=== PATIENT | female | born 1995 | race Asian ===

== ENCOUNTER 2017-03-20 09:19 | Emergency (ER) | payer OTHER ==
[2017-03-20] MEDS ORDERED: NS 0.9% 1000 ML* 1,000 ML IV ONE (09:34)
[2017-03-20 09:51] LABS: Hematocrit 39 % (35-47); Hemoglobin 13.4 g/dl (12.0-16.0); Mean Corpuscular HGB Conc 34 g/dl (31-36); Mean Corpuscular Hemoglobin 32 pg (27-31); Mean Corpuscular Volume 94 fL (80-97); Mean Platelet Volume 8 um3 (7.4-10.4); Red Blood Count 4.17 10^6/ul (4.0-5.4); Red Cell Distribution Width 12 % (10.5-15); White Blood Count 5.8 10^3/ul (3.5-10.8)
[2017-03-20 10:17] LABS: ALT 9 U/L (7-52); AST 12 U/L (13-39); Albumin 3.8 g/dL (3.2-5.2); Alkaline Phosphatase 45 U/L (34-104); Anion Gap 6 mmol/L (2-11); BUN/Creatinine Ratio 16.1 (8-20); Blood Urea Nitrogen 9 mg/dL (6-24); C Reactive Protein < 1.00 mg/L (< 5.00); CO2 Carbon Dioxide 26 mmol/L (22-32); Calcium 8.8 mg/dL (8.6-10.3); Chloride 106 mmol/L (101-111); EGFR African American 174.1 (>60); EGFR Non-African American 135.4 (>60); Globulin 2.5 g/dL (2-4); Glucose 88 mg/dL (70-100); Lipase 10 U/L (11.0-82.0); Potassium 3.4 mmol/L (3.5-5.0); Sodium 138 mmol/L (133-145); Total Protein 6.3 g/dL (6.4-8.9)
[2017-03-20] MEDS ORDERED: Potassium Chlor TAB* 20 MEQ TAB.ER PO ONE (11:04)
--- NOTE | 2017-03-20 11:45 | RAD ---
Indication: Pelvic pain. Real-time sonography of the pelvis was performed. The uterus measures 8.0 x 2.9 x 4.5 cm. Endometrial echo measures 8 mm. Right ovary measures 3.6 x 1.4 x 2.3 cm. Left ovary measures 2.8 x 1.6 x 2.3 cm. No adnexal masses are noted. There are septated cysts in the cul-de-sac measuring 2.5 x 1.5 x 2.2 cm. IMPRESSION: No adnexal masses are noted. There may be a septated cyst noted in the cul-de-sac measuring 2.5 x 1.5 x 2.2 cm.
[2017-03-20 12:34] LABS: Urine Bilirubin Negative (Negative); Urine Glucose Negative (Negative); Urine Nitrite Negative (Negative)
[2017-03-20 12:43] VITALS: BP 84/55
[2017-03-20 12:59] LABS: Urine Bacteria 1+ (Absent)
--- NOTE | 2017-03-20 18:32 | ED ---
Ari Ortiz Angela, scribed for Ben Rodriguez MD on 03/20/17 at 0946 . Abdominal Pain/Female - HPI Summary HPI Summary: This pt is a 21 y/o female presenting to [facility] c/o lower abdominal pain x2 days. Pt reports her abdominal pain 2 days ago was in the pelvic area. She states that she went to [facility] yesterday was given a shot and medication for pelvic inflammatory disease (PID). This lower abd pain is rated 5 out of 10 in severity and described as intermittent "poking in the uterus" pain. Today, her pain was much severe rated 9 out of 10 in severity. She notes she had 30 minutes of constant pain, and describes that she couldn't move secondary to pain. She has never had this pain before. She took 2 Advils today with moderate relief, and currently rates her pain 3 out of 10 in severity. Additionally after taking a ginseng supplement, the pt had 6 episodes of emesis and diarrhea. She states she didn't vomit any food, as she had not eaten within the past 12 hours. LNMP: 1 month ago, pt is 3 days late. - History of Current Complaint Chief Complaint: EDAbdPain Stated Complaint: ABD PAIN Time Seen by Provider: 03/20/17 09:34 Hx Obtained From: Patient Onset/Duration: Lasting Days Timing: Days Pain Intensity: 3 Pain Scale Used: 0-10 Numeric Location: Other - pelvic pain Radiates: No Character: Sharp Associated Signs and Symptoms: Positive: Nausea, Vomiting, Diarrhea. Negative: Fever, Chest Pain, Back Pain Allergies/Adverse Reactions: Allergies Allergy/AdvReac Type Severity Reaction Status Date / Time No Known Allergies Allergy Verified 03/20/17 09:29 PMH/Surg Hx/FS Hx/Imm Hx Endocrine/Hematology History: Denies: Hx Diabetes Cardiovascular History: Denies: Hx Hypertension Psychiatric History: Denies: Hx Eating Disorder Infectious Disease History: No Infectious Disease History: Denies: Traveled Outside the [place] in Last 30 Days - Family History Known Family History: Negative: Hypertension, Diabetes - Social History Alcohol Use: None Hx Substance Use: No Substance Use Type: Reports: None Hx Tobacco Use: No Smoking Status (MU): Never Smoked Tobacco Review of Systems Negative: Fever, Chills ENT: Negative Positive: Abdominal Pain, Vomiting, Diarrhea, Nausea Genitourinary: Negative Negative: Headache, Weakness, Paresthesia, Numbness All Other Systems Reviewed And Are Negative: Yes Physical Exam - Summary Physical Exam Summary: VITAL SIGNS: Reviewed. GENERAL: Patient is a well-developed and nourished female who is lying comfortable in the stretcher. Patient is not in any acute respiratory distress. HEAD AND FACE: Normocephalic and atraumatic. EYES: PERRLA, EOMI x 2, No injected conjunctiva. EARS: Hearing grossly intact. Ear canals and tympanic membranes are WNL. MOUTH: Oropharynx within normal limits. NECK: Supple, trachea is midline, no adenopathy, no JVD. CHEST: Symmetric, no tenderness at palpation LUNGS: Clear to auscultation bilaterally. No wheezing or crackles. CVS: RRR, S1 and S2 present, no murmurs or gallops appreciated. ABDOMEN: Soft, non-tender. No signs of distention. Positive bowel sounds. No rebound no guarding, and no masses palpated. No abdominal bruit or pulsations. There is pelvic tenderness to palpation. EXTREMITIES: FROM in all major joints, no edema, no cyanosis or clubbing. NEURO: Alert and oriented x 3. No acute neurological deficits. Speech is normal. SKIN: Dry and warm Triage Information Reviewed: Yes Vital Signs On Initial Exam: Initial Vitals Temp Pulse Resp BP Pulse Ox 97.6 F 66 20 113/62 95 03/20/17 09:27 03/20/17 09:27 03/20/17 09:27 03/20/17 09:27 03/20/17 09:27 Vital Signs Reviewed: Yes Diagnostics - Vital Signs Vital Signs Temp Pulse Resp BP Pulse Ox 03/20/17 09:27 97.6 F 66 20 113/62 95 - Laboratory Lab Results: Lab Results 03/20/17 03/20/17 03/20/17 Range/Units 09:44 09:44 09:44 WBC 5.8 (3.5-10.8) 10^3/ul RBC 4.17 (4.0-5.4) 10^6/ul Hgb 13.4 (12.0-16.0) g/dl Hct 39 (35-47) % MCV 94 (80-97) fL MCH 32 H (27-31) pg MCHC 34 (31-36) g/dl RDW 12 (10.5-15) % Plt Count 193 (150-450) 10^3/ul MPV 8 (7.4-10.4) um3 Neut % (Auto) 73.1 (38-83) % Lymph % (Auto) 17.4 L (25-47) % Lynn % (Auto) 5.7 (1-9) % Eos % (Auto) 2.9 (0-6) % Baso % (Auto) 0.9 (0-2) % Absolute Neuts (auto) 4.2 (1.5-7.7) 10^3/ul Absolute Lymphs (auto) 1.0 (1.0-4.8) 10^3/ul Absolute Monos (auto) 0.3 (0-0.8) 10^3/ul Absolute Eos (auto) 0.2 (0-0.6) 10^3/ul Absolute Basos (auto) 0.1 (0-0.2) 10^3/ul Absolute Nucleated RBC 0 10^3/ul Nucleated RBC % 0.1 Sodium 138 (133-145) mmol/L Potassium 3.4 L (3.5-5.0) mmol/L Chloride 106 (101-111) mmol/L Carbon Dioxide 26 (22-32) mmol/L Anion Gap 6 (2-11) mmol/L BUN 9 (6-24) mg/dL Creatinine 0.56 (0.51-0.95) mg/dL Est GFR ( Amer) 174.1 (>60) Est GFR (Non-Af Amer) 135.4 (>60) BUN/Creatinine Ratio 16.1 (8-20) Glucose 88 (70-100) mg/dL Lactic Acid 1.0 (0.5-2.0) mmol/L Calcium 8.8 (8.6-10.3) mg/dL Total Bilirubin 0.50 (0.2-1.0) mg/dL AST 12 L (13-39) U/L ALT 9 (7-52) U/L Alkaline Phosphatase 45 (34-104) U/L C-Reactive Protein < 1.00 (< 5.00) mg/L Total Protein 6.3 L (6.4-8.9) g/dL Albumin 3.8 (3.2-5.2) g/dL Globulin 2.5 (2-4) g/dL Albumin/Globulin Ratio 1.5 (1-3) Lipase 10 L (11.0-82.0) U/L Beta HCG, Quant < 0.60 mIU/mL Urine Color Urine Appearance Urine pH (5-9) Ur Specific [place] (1.010-1.030) Urine Protein (Negative) Urine Ketones (Negative) Urine Blood (Negative) Urine Nitrate (Negative) Urine Bilirubin (Negative) Urine Urobilinogen (Negative) Ur Leukocyte Esterase (Negative) Urine WBC (Auto) (Absent) Urine RBC (Auto) (Absent) Urine Bacteria (Absent) Urine Glucose (Negative) Urine Ascorbic Acid 03/20/17 Range/Units 11:30 WBC (3.5-10.8) 10^3/ul RBC (4.0-5.4) 10^6/ul Hgb (12.0-16.0) g/dl Hct (35-47) % MCV (80-97) fL MCH (27-31) pg MCHC (31-36) g/dl RDW (10.5-15) % Plt Count (150-450) 10^3/ul MPV (7.4-10.4) um3 Neut % (Auto) (38-83) % Lymph % (Auto) (25-47) % Lynn % (Auto) (1-9) % Eos % (Auto) (0-6) % Baso % (Auto) (0-2) % Absolute Neuts (auto) (1.5-7.7) 10^3/ul Absolute Lymphs (auto) (1.0-4.8) 10^3/ul Absolute Monos (auto) (0-0.8) 10^3/ul Absolute Eos (auto) (0-0.6) 10^3/ul Absolute Basos (auto) (0-0.2) 10^3/ul Absolute Nucleated RBC 10^3/ul Nucleated RBC % Sodium (133-145) mmol/L Potassium (3.5-5.0) mmol/L Chloride (101-111) mmol/L Carbon Dioxide (22-32) mmol/L Anion Gap (2-11) mmol/L BUN (6-24) mg/dL Creatinine (0.51-0.95) mg/dL Est GFR ( Amer) (>60) Est GFR (Non-Af Amer) (>60) BUN/Creatinine Ratio (8-20) Glucose (70-100) mg/dL Lactic Acid (0.5-2.0) mmol/L Calcium (8.6-10.3) mg/dL Total Bilirubin (0.2-1.0) mg/dL AST (13-39) U/L ALT (7-52) U/L Alkaline Phosphatase (34-104) U/L C-Reactive Protein (< 5.00) mg/L Total Protein (6.4-8.9) g/dL Albumin (3.2-5.2) g/dL Globulin (2-4) g/dL Albumin/Globulin Ratio (1-3) Lipase (11.0-82.0) U/L Beta HCG, Quant mIU/mL Urine Color Yellow Urine Appearance Clear Urine pH 6.0 (5-9) Ur Specific [place] 1.005 L (1.010-1.030) Urine Protein Negative (Negative) Urine Ketones Negative (Negative) Urine Blood Negative (Negative) Urine Nitrate Negative (Negative) Urine Bilirubin Negative (Negative) Urine Urobilinogen Negative (Negative) Ur Leukocyte Esterase Negative (Negative) Urine WBC (Auto) (Absent) Urine RBC (Auto) Trace(0-2/hpf) (Absent) Urine Bacteria 1+ H (Absent) Urine Glucose Negative (Negative) Urine Ascorbic Acid Not Reportable Result Diagrams: 03/20/17 09:44 03/20/17 09:44 Lab Statement: Any lab studies that have been ordered have been reviewed, and results considered in the medical decision making process. - Ultrasound No standard instances Ultrasound Interpretation: Positive (See Comments) - Pelvic US IMPRESSION: No adnexal masses are noted. There may be septated cyst noted in the cul-de-sac measuring 2.5 x 1.5 x 2.2 cm. ED physician has reviewed this radiology report and agrees. Ultrasound Interpretation Completed By: Radiologist Abdominal Pain Fem Course/Dx - Course Course Of Treatment: This pt is a 21 y/o female presenting to [facility] c/o lower abdominal pain x2 days. Pt reports her abdominal pain 2 days ago was in the pelvic area. She states that she went to [facility] yesterday was given a shot and medication for pelvic inflammatory disease (PID). This lower abd pain is rated 5 out of 10 in severity and described as intermittent "poking in the uterus" pain. Today, her pain was much severe rated 9 out of 10 in severity. She notes she had 30 minutes of constant pain, and describes that she couldn't move secondary to pain. She has never had this pain before. She took 2 Advils today with moderate relief, and currently rates her pain 3 out of 10 in severity. Additionally after taking a ginseng supplement, the pt had 6 episodes of emesis and diarrhea. She states she didn't vomit any food, as she had not eaten within the past 12 hours. LNMP: 1 month ago, pt is 3 days late. Test results are without any significant abnormalities except for potassium of 3.4 for which the pt was given potassium chloride. Urinalysis is negative for UTI. Pelvic US shows no adnexal masses and a septated cyst noted in the cul-de-sac. I offered the pt a pelvic exam, but the pt declines since she had one done yesterday at [facility]. She was diagnosed with PID, even though she is not sexually active. Pt was taking rocephin and azithromycin, and now she is taking doxycycline. At this time the pt is completely asymptomatic and all her symptoms resolved, only lasting for a few minutes. Since the pts blood test and US are negative and the pt is asymptomatic, I will discharge the pt and is advised to follow up with OBGYN. Pt understands and agrees. Pt is hemodynamically stable, alert and oriented x3. - Diagnoses Differential Diagnosis: Positive: Ectopic , Ovarian Cyst, , Urinary Tract Infection Provider Diagnoses: Pelvic cyst, Pelvic pain Discharge - Discharge Plan Condition: Stable Disposition: HOME Patient Education Materials: Pelvic Pain in Women (ED) Referrals: [facility] [Outside] Additional Instructions: Please follow up with your primary care provider in [place]. The documentation as recorded by the Ari reid Angela accurately reflects the service I personally performed and the decisions made by me, Ben Rodriguez MD.
== END 2017-03-20 13:04 | disposition home or self-care (01) ==
LOC: ED 09:19
DX: R10.30 Lower abdominal pain, unspecified (principal); N94.89 Other specified conditions associated with female genital organs and menstrual cycle; R10.2 Pelvic and perineal pain; R11.2 Nausea with vomiting, unspecified; R19.7 Diarrhea, unspecified
CPT/HCPCS: 36415; 76856; 80053; 81003; 83605; 83690; 84702; 85025; 86140; 87086; 99282; A9270-GY